=== PATIENT | female | born 1980 | race American Indian/Alaskan Native ===

== ENCOUNTER 2016-12-07 10:33 | Outpatient (CLI) | payer BC, OTHER ==
--- NOTE | 2016-12-07 16:00 | Mammography Report ---
BILATERAL DIGITAL SCREENING MAMMOGRAM with CAD: 12/07/16 10:33:00 CLINICAL: Routine screening.History of breast cancer in her mother. COMPARISON:12/01/15 FINDINGS: The breasts are heterogeneously dense, which may obscures small masses. A right upper asymmetry on the MLO view requires additional imaging. There is a new 8mm oil cyst with eggshell calcification in the vicinity of the asymmetry.No architectural distortion or suspicious calcifications.The left breast is negative. IMPRESSION: Right asymmetry requiring further workup. BI-RADS CATEGORY: 0 -- Additional Imaging Evaluation Required RECOMMENDATION: Recall for right mediolateral , spot compression CC and MLO views and right breast ultrasound if needed. ACR BI-RADS MAMMOGRAPHIC CODES: 0 = Needs additional imaging evaluation; 1 = Negative; 2 = Benign; 3 = Probably benign; 4 = Suspicious; 5 = Malignant; 6 = Known biopsy-proven malignancy COMMENT: 1. Dense breast tissue, i.e., adenosis, fibrocystic changes, etc., may obscure an underlying neoplasm. 2. Approximately 10% of cancers are not detected with mammography. 3. A negative mammography report should not delay biopsy if a clinically suspicious mass is present. COMMENT: Patient follow-up letters are generated via our [employer] application.
== END 2016-12-07 10:34 | disposition home or self-care (01) ==
LOC: SPVWC 10:33
PROVIDERS: ATTEND Obstetrics & Gynecology
DX: Z12.31 Encounter for screening mammogram for malignant neoplasm of breast (principal); Z80.3 Family history of malignant neoplasm of breast; Z87.891 Personal history of nicotine dependence
CPT/HCPCS: 77067; G0202

== ENCOUNTER 2017-03-27 08:55 | Outpatient (CLI) | payer BC ==
--- NOTE | 2017-03-27 10:15 | Mammography Report ---
RIGHT DIGITAL DIAGNOSTIC MAMMOGRAM : 03/27/17 08:55:00 CLINICAL: Recalled for asymmetry. COMPARISON:12/07/16 screening FINDINGS: ML, spot compression MLO and CC and rolled CC views were performed. Asymmetry persists with spot compression but is not identified on the other views. This is consistent with benign summation densities. IMPRESSION: No mammographic evidence of malignancy. BI-RADS CATEGORY: 2 - - Benign RECOMMENDATION: Routine mammographic screening in one year. ACR BI-RADS MAMMOGRAPHIC CODES: 0 = Needs additional imaging evaluation; 1 = Negative; 2 = Benign; 3 = Probably benign; 4 = Suspicious; 5 = Malignant; 6 = Known biopsy-proven malignancy COMMENT: 1. Dense breast tissue, i.e., adenosis, fibrocystic changes, etc., may obscure an underlying neoplasm. 2. Approximately 10% of cancers are not detected with mammography. 3. A negative mammography report should not delay biopsy if a clinically suspicious mass is present. COMMENT: Patient follow-up letters are generated via our [employer] application.
== END 2017-03-27 08:56 | disposition home or self-care (01) ==
LOC: SPVWC 08:55
PROVIDERS: ATTEND Obstetrics & Gynecology
DX: N64.89 Other specified disorders of breast (principal)
CPT/HCPCS: G0206-RT

== ENCOUNTER 2018-09-18 14:10 | Outpatient (CLI) | payer OTHER ==
--- NOTE | 2018-09-18 15:13 | Mammography Report ---
RIGHT DIGITAL DIAGNOSTIC MAMMOGRAM with CAD: 09/18/18 14:10:00 CLINICAL: Right palpable breast lump. COMPARISON:03/11/18 FINDINGS: The breast is mostly fatty. A heavily calcified benign oil cyst with a biopsy clip is identified at a palpable marker in the upper outer breast. The calcified cyst measures 8 mm and the biopsy has been performed since 03/11/18. No other mass, architectural distortion or suspicious calcifications. IMPRESSION: No mammographic evidence of malignancy.A benign oil cyst correlates with the palpable lump. No suspicious findings. BI-RADS CATEGORY: 2 - - Benign RECOMMENDATION: Routine mammographic screening. COMMENT: 1. Dense breast tissue, i.e., adenosis, fibrocystic changes, etc., may obscure an underlying neoplasm. 2. Approximately 10% of cancers are not detected with mammography. 3. A negative mammography report should not delay biopsy if a clinically suspicious mass is present. COMMENT: Patient follow-up letters are generated by our [email or web address] application.
== END 2018-09-18 14:11 | disposition home or self-care (01) ==
LOC: SPVWC 14:10
PROVIDERS: ATTEND Hospitalist
DX: N60.01 Solitary cyst of right breast (principal)

== ENCOUNTER 2020-04-07 09:29 | Outpatient (CLI) | payer OTHER ==
--- NOTE | 2020-04-07 10:37 | XRay Report ---
XR spine cervical 2-3V HISTORY: BACK PAIN COMPARISON: None. TECHNIQUE: 4 view(s) of the cervical spine obtained. FINDINGS: Vertebrae: Normal alignment. Vertebral body heights are preserved. C1 and C2 are congruent. Odontoi d process is intact. Spondylosis:No significant abnormality. Soft tissues: No prevertebral soft tissue thickening. IMPRESSION: 1. No significant abnormality of the cervical spine. Signer Name: Bony Chan MD Signed: 04/07/2020 10:32 AM Workstation Name: [email or web address]
--- NOTE | 2020-04-07 10:38 | XRay Report ---
LUMBAR SPINE 3 VIEW INDICATION / CLINICAL INFORMATION: BACK PAIN. COMPARISON: None available. FINDINGS: BONES/JOINT(S): No acute fracture or subluxation. Mild left convex scoliosis with the apex at the L1- 2 level. SOFT TISSUES: No significant abnormality. ADDITIONAL FINDINGS: None. Signer Name: Juan Pablo Fernandez MD Signed: 04/07/2020 10:34 AM Workstation Name: [id number]
--- NOTE | 2020-04-07 10:39 | XRay Report ---
XR knee 1-2V LT INDICATION / CLINICAL INFORMATION: LEFT KNEE PAIN. COMPARISON: None available. FINDINGS: No acute fracture. Normal alignment. Mild medial compartment osteophytes. Small joint effusion.No d estructive osseous lesion or suspicious periosteal reaction. Impression: 1. Small joint effusion with mild medial compartment osteoarthritis. Signer Name: Bony Chan MD Signed: 04/07/2020 10:34 AM Workstation Name: [id number]
== END 2020-04-07 09:30 | disposition home or self-care (01) ==
LOC: XRAY 09:29
PROVIDERS: ATTEND Internal Medicine
DX: M17.12 Unilateral primary osteoarthritis, left knee (principal); M25.762 Osteophyte, left knee; M25.462 Effusion, left knee; M41.86 Other forms of scoliosis, lumbar region; D21.9 Benign neoplasm of connective and other soft tissue, unspecified; N18.9 Chronic kidney disease, unspecified
CPT/HCPCS: 72040; 72100